=== PATIENT | female | born 1985 | race Caucasian/White ===

== ENCOUNTER 2023-11-25 10:12 | Outpatient (CLI) | payer OTHER, SELFPAY | END 2023-11-25 10:13 | disposition home or self-care (01) | LOC: NFLDREF 11-27 09:33 | PROVIDERS: Visit Provider Advanced Practice Midwife | DX: Z34.93 Encounter for supervision of normal pregnancy, unspecified, third trimester (principal); Z3A.28 28 weeks gestation of pregnancy | CPT/HCPCS: 86592 ==

== ENCOUNTER 2024-01-22 09:52 | Outpatient (CLI) | payer OTHER, SELFPAY | END 2024-01-22 09:53 | disposition home or self-care (01) | LOC: NFLDREF 01-24 03:28 | PROVIDERS: Visit Provider Midwife | DX: Z34.93 Encounter for supervision of normal pregnancy, unspecified, third trimester (principal); O99.013 Anemia complicating pregnancy, third trimester; O09.523 Supervision of elderly multigravida, third trimester; Z3A.36 36 weeks gestation of pregnancy | CPT/HCPCS: 87081; 87653 ==

== ENCOUNTER 2024-02-16 18:14 | Inpatient (IN) | payer OTHER, SELFPAY ==
[2024-02-16 18:01] VITALS: BP 111/59; PULSE 85
[2024-02-16 18:23] LABS: Amnisure Rom* POSITIVE
--- NOTE | 2024-02-16 19:24 | W.PM.LDBA ---
Subjective History of Present Illness Date Seen: 02/16/24 Narrative: Elizabeth is being admitted to Labor and Delivery for SROM and labor contractions that began about 30 minutes after. She is a 38 year old at 40.2 weeks gestation. Her full history and physical was dictated by Lm Zhao CNM on 01/29/24. Please see this for details. Elizabeth had SROM at home around [] with clear fluid and started shira about 30 minutes after that. They have increased in frequency and intensity since that time. On arrival to the unit she is using movement and breathing to cope with contractions. SVE at that time was 3-4/75%/-3 with moderate amount of clear fluid. She continues to leak. She desires a waterbirth. Specific Issues/Plans : Mina Aguilarkatyaevelyn H&P completed 01/29/2024 by Osei NUNEZ # AMA -level II ordered with MPP: 09/24/2023: No aneuploidy markers, no structural anomalies, SDP 3.79, EFW 44%, normal placenta posterior. No additional follow-up needed. Genetic screening: declines # BMI 32.9 -Encouraged to start aspirin, may decline #Anemia. Hgb 10.5 at 28 weeks. [facility] records: Labs 07/31/23 Blood type B+ AB screen: negative Hgb 13.4 Plts 198 Rubella immune RPR neg Hep B neg HIV neg GC/Chlamydia Neg Urine culture: WNL Hep C neg Varicella immune Pap 09/22 NIL, HPV neg LMP 05/10/23 Viability u/s: 07/02/23 7.2 weeks, ZAIN 02/16/24. Myoma 1 - intramural, anterior & mid segment of the uterus, 1.1 x 0.9 x 0.9 Myoma 2 - intramural, left anterior mid segment of the uterus, 1 x 0.7 x 0.9 07/31/23. 11.6 weeks, ZAIN 02/13/24. Tiny uterine fibroids noted. ZAIN by LMP, 02/14/24 Tdap: Patient declined Flu: declined COVID: declined OB - Problem Based A/P Additional Plan (1) Pain during labor: Status: Acute (2) SROM (spontaneous rupture of membranes): Status: Acute (3) Anemia affecting : Status: Acute (4) AMA (advanced maternal age) multigravida 35+: Status: Acute Plan ASSESSMENT:? at 40.2 weeks gestation? GBS negative? complicated by: AMA, anemia ? SROM followed by spontaneous labor Blood type:?B+ ?? PLAN:? 1. Spontaneous labor after SROM. Expectant management at this time. 2. Desires water . Consent signed. Hep C negative.? 3. Candidate for analgesia of choice. Planning unmedicated .? 4. Anticipate ? 5. Expectant management at this time.? 6. IV not needed at this time. Consider if patient condition changes per unit policy. 7. Intermittent auscultation after reactive tracing per unit policy. Delivery/Labor/Induction Plan Plan: expectant management OB Result Labs Blood Type: B (+) positive Rubella: immune RPR/VDLR: nonreactive GBS Status: negative HBsAG: negative OB Exam Physical Exam Vital signs: Pulse BP 85 111/59 L 02/16/24 18:01 02/16/24 18:01 Narrative: Psychiatric:? Alert and oriented x3? HEENT:? Normocephalic, atraumatic? Neck:? Supple without adenopathy or thyromegaly? Lungs:? Clear to auscultation bilaterally? Heart:? Regular rate and rhythm, no murmur, rub or gallop? Abdomen:? Soft, nontender, and gravid? Extremities:? No edema or erythema? 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
[2024-02-16 19:31] VITALS: TEMP 36.6
[2024-02-16 21:39] VITALS: BP 120/69
[2024-02-17] VITALS (15 sets, daily range): BP systolic 102–132; BP diastolic 65–89; PULSE 92–151; RESP 16–18; TEMP 36.2–36.9; O2SAT 96–100
[2024-02-17] MEDS: LIDOCAINE 1 % PF 30 ML INJECTION (01:25)
[2024-02-17] MEDS: lidocaine HCL 2 % JELLY (TOP) STERILE 6 ML TOPICAL (01:25)
--- NOTE | 2024-02-17 01:59 | W.PM.OBVAGDE ---
OB Procedure Vag Delivery Mother Details Mother Details: The patient is a 38 year-old, 3, Para 0, admitted on 02/16/24 at 40.3 Days gestation. : 3 Para: 1 Weeks Gestation: 40.3 Admission Date: 02/16/24 Additional Details Amniotic Membrane Status: SROM Amniotic Membrane Rupture Date: 02/16/24 Amniotic Membrane Rupture Time: 15:00 Amniotic Membrane Fluid Description: Clear Analgesia/Anesthesia Type: None Waterbirth: Yes Pitcoin: No Labor Onset: 16:00 Complete: 22:29 Pushin:55 (pushing spontaneously before SVE) Heart: heart tones during second stage were heard on doppler 120-130 without decreases heard. Delivery Details Delivery Date: 02/17/24 Delivery Time: 00:18 Route of delivery: Gender: Female Viability: Alive; Heart Rate Present Position at Delivery: OA Delivery Details: Patient was admitted for SROM and active labor and progressed normally. SROM noted at 1500 with clear fluid. Patient was confirmed complete by SVE at 2229 but assumed complete with spontaneous pushing at 2155. of a viable female at 0018 in left side lying in the tub. Vertex delivered OA. No nuchal cord or shoulder. Cord was noted to be wrapped around the right leg loosely after delivery. Body delivered easily and without incident. Infant passed to mothers abdomen with a vigorous cry. Cord was clamped and cut at > 5 minutes. APGARS were [ ] at one minute and [ ] at five minutes respectively. Mouth was bulb suctioned. Intact placenta with a 3 vessel cord delivered at 0107. A manual sweep was performed to release one small spot of the placenta that had not released. She was offered Cytotec or Pitocin around 40 minutes after to assist with delivery of the placenta but she declined. Squatting was attempted but did not results in the placenta delivering. She was again offered Pitocin or Cytotec around 50 minutes after delivery which she again declined but she desired and was agreeable to a manual sweep instead. Fundus firm. 2nd degree perineal and left labial laceration were identified and repaired in typical fashion. QBL 700mL in the drape and EBL 200 in the tub for a total of 900mL. Mother and baby stable; mother plans to breastfeed. weight pending.? Additional Details Shoulder Dystocia: No Placenta Delivery Time: 01:07 Placental Delivery Description: Manual Removal Delivery repair: Vicryl Procedure Done: Global Blood Loss: 900 Laceration: Perineal - 2nd Degree (and labial) Episiotomy Description: None Blood Loss Measurement Type: QBL Bakri Used: No Sponge/Need Count Correct: Yes Cord Vessel Description: 3 Vessels and Around Extremity (right leg) Event Summary Status: Mother and were stable after delivery. Disposition: floor
--- NOTE | 2024-02-17 12:34 | PM.EN ---
Chart Event Note Chart Event Note: RN reported that manual removal of placenta was done and asked about prophylaxis antibiotics. Per ENRIQUE Dean note, I don't know if complete manual removal was performed but antibiotics were not ordered. Reviewed this with Dr. Tompkins who agrees that no antibiotics are necessary at this point. Recommended continue monitoring for s/sx of infection. RN notified.
[2024-02-17] MEDS: DOCUSATE SODIUM 100 MG CAPSULE PO (14:03)
[2024-02-18 02:28] VITALS: BP 106/68; PULSE 104; RESP 20; TEMP 36.9; O2SAT 94
--- NOTE | 2024-02-18 07:26 | P.DS_ITS ---
DS: Providers Provider Date Seen: 02/18/24 Date of admission: 02/16/24 18:14 Primary care physician: Not a Local Provider Admitting Clinician: Cher Dean CNM Attending Physician on discharge: Osei NUNEZ APRN Date of Discharge: 02/18/24 DS: Diagnosis Discharge Diagnosis (1) AMA (advanced maternal age) multigravida 35+: Status: Acute (2) Anemia affecting : Status: Acute (3) care and examination of lactating mother: Status: Acute (4) (normal spontaneous vaginal delivery): Status: Acute Exam Narrative: Exam Narrative: GENERAL APPEARANCE:? normal affect, alert, no distress MOOD:? appropriate CHEST:? clear to auscultation HEART:? regular rate and rhythm ABDOMEN:? soft, non-tender the uterine fundus is At Umbilicus, Midline and is appropriate for the stage of recovery. PERINEUM:? RN to visualize as did not want to disturb baby EXTREMITIES:? normal and minimal edema Const: Vital Signs, click to edit/add: Vital Signs - 24 hr 02/17/24 09:20 02/17/24 13:30 02/17/24 17:58 Temperature 97.8 F 97.1 F L 97.6 F Pulse Rate [Pulse Oximeter] 99 92 98 Respiratory Rate 16 16 18 Blood Pressure [Ri ght Arm] 111/89 118/81 112/78 Pulse Oximetry 98 97 96 Oxygen Delivery Me thod Room Air Room Air Room Air 02/17/24 21:02 02/18/24 02:28 Temperature 98.5 F 98.5 F Pulse Rate [Pulse Oximeter] 92 104 H Respiratory Rate 16 20 Blood Pressure [Ri ght Arm] 120/79 106/68 Pulse Oximetry 96 94 Oxygen Delivery Me thod Room Air Room Air OB - DS: Summary Hospital Course Hospital Course: Elizabeth is a 38 y.o. G [id number] who was admitted to L & D for SROM and active labor.? She had a NVD that was complicated by manual extraction of the placenta. The patient feels well.? The pain is well controlled with current medications.? She has no new complaints.? She is breast feeding and reports things are going well. She plans to see prior to discharge. the patient has done well.? Vitals have been stable.? She has remained afebrile.? Has a good appetite, is tolerating a general diet.? She is voiding without difficulty.? She is passing gas and has not had a bowel movement.? She is ambulating and denies any dizziness.? Has small amount of rubra lochia. She is planning condoms for prevention.? ?? Problems: none? ?? plan:? Discharge home with baby.? Follow up in 2 weeks and 6 weeks.? , may see if needed? Hgb 9.4. ? ? Labs WNL or stable with trending? Peripartum Data delivery method: Vaginal Laceration description: Perineal - 2nd Degree [place] Infant Gender: Female Infant Discharge Plan: Home Status at Discharge Overall status at discharge: patient is progressing back to baseline Time Spent with Patient Time attestation: Total time spent providing and/or coordinating discharge services: Time spent: Less than 30 minutes Discharge Plan Discharge Disposition: Home, Self-Care Date of Admission: 02/16/24 18:14 Attending Provider on Discharge: Rosie Zhao Primary Care Provider: Provider,Not a Local Condition: Stable Anticipated Discharge Date/Time: 02/18/24 13:54 Discharge Medications: Continued Classic 28 mg iron- 800 mcg tablet PO QDAY omega-3 fatty acids 500 mg capsule 500 mg PO QDAY Saccharomyces boulardii [Daily Probiotic (S. boulardii)] 250 mg capsule 250 mg PO BID magnesium 250 mg tablet 250 mg PO QDAY Discharge Orders: Discharge Order (Routine); Ordered 02/18/24 Ordered By: Rosie Zhao Patient Education: OB Care, OB Vaginal/Breast Feeding Additional Instructions: Discharge instructions were reviewed with the patient including signs and symptoms of infection and home going medications Nothing vaginally for 6 weeks: no tampons or intercourse Do not drive while taking narcotic pain medication(s) Off Work or School for 6 weeks Symptoms to report to doctor: * Bleeding that saturates more than one pad per hour * Passing clots larger than the size of a golf ball * Pain not relieved by prescribed medication * Fever above 100.4 degrees Fahrenheit * A foul vaginal odor * Difficulty in emotions, mood, and functions * Thoughts of hurting yourself and/or * Painful, reddened area in your breast * Any drainage, redness, or tenderness in your IV/epidural site * Severe headache that doesn't improve after taking medications * Changes in vision, including temporary loss of vision, blurred vision, and/or light sensitivity * Upper abdominal pain (usually under ribs on the right side) * Decrease in urination or painful, frequent urinating * Chest pain * Shortness of breath * Tenderness or pain with redness and/swelling in the calf(s) of your leg 2-week visit: discuss infant feeding concerns, review control options and screen for anxiety/depression. 6-week visit for an annual exam. consultation services are available to all mothers and babies for the first year after delivery.? To make an appointment, please call [phone]. Activity Level: Activity as Tolerated Discharge Diet: Regular Follow Up Appointments: [facility] [Provider Group] Forms: [facility] Info Instructions
[2024-02-18 09:46] LABS: Hemoglobin* 9.4 gm/dL (12.0-16.0)
[2024-02-19 23:56] LABS: Rapid Plasma Reagin (RPR) Non Reactive (Non Reactive)
== END 2024-02-18 15:10 | disposition home or self-care (01) | DRG 807 ==
LOC: OB OUT 18:14 → OB 18:14
PROVIDERS: Admitting Provider Advanced Practice Midwife; Visit Provider Advanced Practice Midwife
DX: O99.02 Anemia complicating childbirth (principal); Z37.0 Single live birth; O70.1 Second degree perineal laceration during delivery; O73.0 Retained placenta without hemorrhage; D64.9 Anemia, unspecified; Z3A.40 40 weeks gestation of pregnancy
CPT/HCPCS: 36415; 84112; 85018; 86592; 88307; A9270; J2003

== ENCOUNTER 2024-02-22 14:37 | Outpatient (CLI) | payer OTHER, SELFPAY ==
--- NOTE | 2024-02-22 16:21 | W.PM.LAC.MC ---
Consult Note - Mom Date of Visit Date of visit: 02/22/24 Reason for consultation: Assistance Needed and Infant Weight Concern Visit Code: Visit Patient's Information Phone number: [phone] : 3 Para: 1 Allergies No Known Drug Allergies Allergy (Verified 02/22/24 11:35) Mother's Medical History: Medical History (Updated 02/20/24 @ 00:01 by Background Daemon) Psoriasis ?L40.9 - Psoriasis, unspecified (ICD-10) BMI 32.0-32.9,adult ?Z68.32 - Body mass index [BMI] 32.0-32.9, adult (ICD-10) Anemia affecting ?O99.019 - Anemia complicating , unspecified trimester (ICD-10) Delivery Information Delivery type: Vaginal Gestational Age: 40w 3d Gestational Weight For Age: LGA Weight: 4.185 kg Discharge Weight: 3.972 kg Percentage weight loss: 5 Baby's Information Baby's Age at Visit: 5 days Baby's Provider or Clinic: [facility] for 1[facility] visit; likely transferring to [facility] Jaundice: No Past Experience Past Experience: No Current Frequency of Day Feedings: average every 3 hours due to sleepiness Frequency of Night Feedings: average every 3 hours Both Breasts: Yes Suck: strong Latch: still working on wider, deeper latch Length of Time: 15-20 min ea side Goals: 1 year Pumping Pumping: Yes Quantity Pumped: got 1 oz this morning for the first time Supplementing EBM Supplement: Yes Formula Supplement: Yes Baby Elimination Number of Wet Diapers a Day: 4 yesterday, 3 so far today Number of BM a Day: 2 so far today, last one was finally more yellow than green Breast/Nipple Condition Breast Information: Breasts are symmetrical with rounded lower quadrants, intramammary distance is less than 1.5 inches. No erythema. Nipples are supple, everted prior to feeding. Breast Shape: Round Engorgement: No Maternal Nipple Condition - Left: Common Nipple and Other (slight scabbing) Maternal Nipple Condition - Right: Common Nipple and Other (slight scabbing) Sore Nipples: Yes Interventions for Sore Nipples: Lansinoh/Nipple Cream and Other (silverettes) Baby Assessment Skin: Normal Tongue/frenulum: Normal/elastic and Other (tongue sucker) Palate: Average Lips: Relaxed and Symmetrical Jaw Alignment: Symmetrical Mucosa: [place], moist Onsite Observation Pre-Feed weight: 3.874 kg Post-Feed weight: 3.904 kg Milk Transferred (mL): 30 Position: Cross cradle Attachment/latch-on achieved: Easily Swallow: Audible, consistent Behavior following feed: Alert, content Pre-Nursing Left Nipple: Within Normal Limits Pre-Nursing Right Nipple: Within Normal Limits Post-Nursing Left Nipple: Creased/Beveled (slight, still needs a deeper latch, but less painful for mom) Post-Nursing Right Nipple: Creased/Beveled (still needs a deeper latch, but less painful for mom) Assessments/Interventions Assessments/Interventions: Worked with mom, dad and 5 day old baby on questions re: milk transfer Saw provider 2 days ago, baby at 10% weight loss, were told to supplement 1/2-1 oz ea feeding. Mom was told to pump after feedings, or to pump and bottle to know how much baby is getting. Mom got 1 oz this morning, but otherwise has not been getting much milk output with pumping so feeling discouraged. Justin nursed well here; took several attempts to get baby wide and deep on mom's breast, but eventually able to do so. Nursed 15 min on mom's right breast and transferred 14 ml, then nursed 14 min on mom's left breast and transferred 16 ml for 30ml total. Mom used breast compression when baby got sleepy to increase milk to baby and suckling behavior by . Babe content in father's arms after feeding. Justin had been very fussy at the time of Thursday's appointment; much more content now, even after the feeding here in the office Education provided: Early feeding cues to maximize timing of latching, Asymmetric latch technique for wide/deep latch to increase milk, Transfer for baby and increase comfort for mom (need to wait for a yawn wide mouth before bringing baby to the breast for widest, deepest latch), Supply/demand nature of milk supply, Need for frequent stimulation/milk removal, Alternative feeding methods (SNS, cup, finger feeding, bottling) and Pumping for milk management Handouts Provided: [employer] Cycle pumping and info on hands on pumping Feeding Plan: 1. Breastfeed for 15 min on each breast, listening for active swallowing, breast compression when baby is sleepy to increase milk to baby and suckling by baby 2. Pump both breasts for: 20 minutes after each feeding as much as able to stimulate supply, and to have milk for baby's supplement. Discussed hands on pumping may help with expression of milk. 3. Feed baby 15 ml of pumped milk and/or formula after every feeding if baby is acting hungry 4. Use bottle for feedings based on preference 5. Rest, and repeat every 2-3 hours, watch for early feeding cues 6. Try skin to skin to increase milk production Follow-Up Suggested follow up: Appointment in 1 week Recommend baby be seen by provider for:: Discussed appt with primary provider for general pediatric care; discussed options within the [employer] system as family not sure they are going back to [facility] Call with questions/concerns prior to appt next week. Time Spent Time spent with patient (min): 100 (reviewing EMR and face to face time with patient, , and ) Meds Home Medications and Allergies Home Medications ?Medication ?Instructions ?Recorded ?Confirmed ?Type Saccharomyces boulardii 250 mg 250 mg PO BID 08/18/23 02/22/24 History capsule (Daily Probiotic (S. boulardii)) omega-3 fatty acids 500 mg capsule 500 mg PO QDAY 08/18/23 02/22/24 History vits no.126-ferrous fum tab PO QDAY 08/18/23 02/22/24 History 28 mg iron-folic acid 800 mcg tablet (Classic ) magnesium 250 mg tablet 250 mg PO QDAY 01/22/24 02/22/24 History Allergies Allergy/AdvReac Type Severity Reaction Status Date / Time No Known Drug Allergies Allergy Verified 02/22/24 11:35
== END 2024-02-22 14:38 | disposition home or self-care (01) ==
LOC: OB LAC 14:45
PROVIDERS: Visit Provider Obstetrics & Gynecology
DX: Z39.1 Encounter for care and examination of lactating mother (principal)
CPT/HCPCS: G0463

== ENCOUNTER 2024-04-07 14:31 | Outpatient (CLI) | payer OTHER, SELFPAY ==
--- NOTE | 2024-04-07 16:03 | P.LACF_ITS ---
Follow-Up Note: Mom Date of visit Date of visit: 04/07/24 Reason for consultation: Assistance Needed (latch issues; baby making smacking noises when nursing) and Low Milk Supply (still not producing enough to meet baby's needs) Visit Code: Visit Patient's Information Allergies No Known Drug Allergies Allergy (Verified 03/30/24 09:27) Delivery Information Last Weight: 4.258 kg (03/03) Baby's Information Baby's name: Emili Baby's Age at Visit: 1m 20d Baby's Provider or Clinic: [facility] Current Frequency of Day Feedings: every 3 hours or so, sometimes a 4 hr stretch with naps Frequency of Night Feedings: every 2-3 hours Both Breasts: Yes Suck: strong, making clicking noises now Latch: ok, cold be wider, deeper Length of Time: 15 min ea side most feedings Pumping Pumping: Yes Quantity Pumped: 1/2-1 oz total if feed first; 3 oz if not breastfeed first Supplementing EBM Supplement: Yes Formula Supplement: Yes (takes 1-2 oz after some feedings, especially afternoon/evening feeds) Baby Elimination Number of Wet Diapers a Day: ea feeding Number of BM a Day: 1-2/day Breast/Nipple Assessment Breast Shape: Round Engorgement: No Maternal Nipple Condition - Left: Common Nipple Maternal Nipple Condition - Right: Common Nipple Sore Nipples: No Onsite Observation Pre-feed weight: 5.266 kg Post-Feed weight: 5.31 kg Milk Transferred (mL): 44 (after nursing 15 min ea side; 24ml on right, 20ml on left) Pre-Nursing Left Nipple: Within Normal Limits Pre-Nursing Right Nipple: Within Normal Limits Post-Nursing Left Nipple: Creased/Beveled (slight) Post-Nursing Right Nipple: Creased/Beveled (slight) Assessments/Interventions Assessments/Interventions: Watching mom nurse, she is leaning into baby and baby clamps down on the nipple pretty quickly. Back to basics of a wide, deep latch to get baby on the breast deeper, with more breast tissue in her mouth to increase milk transfer for baby and decreased creased nipple for mom. Mom asking about just pumping and bottling and if that would be better for her milk supply overall; discussed getting baby to breast with a wide, deep latch will likely be better for her milk supply in the long term care social worker than pumping and bottling alone. Even if mom needs to pump for a feeding, best to put baby to the breast for 5-10 min ea side than pumping alone, especially if baby can get a deeper latch. If baby has learned some less than ideal habits, she may need to unlearn them to get back to a deeper latch. Baby not opening mouth very wide so discussed tips/tricks to help with that. Baby able to suck on a gloved finger up to 2nd knuckle so gag reflex not too strong and should allow for mom's breast to be deeper in her mouth. Discussed importance of frequent milk removal most helpful in maintaining milk supply. Education provided: Early feeding cues to maximize timing of latching, Asymmetric latch technique for wide/deep latch to increase milk, Transfer for baby and increase comfort for mom, Supply/demand nature of milk supply, Need for frequent stimulation/milk removal and Pumping for milk management Follow-Up Suggested follow up: Appointment as needed Time Spent Time spent with patient (min): 90 (reviewing EMR and face to face with patient, , and baby) Meds Home Medications and Allergies Home Medications ?Medication ?Instructions ?Recorded ?Confirmed ?Type Saccharomyces boulardii 250 mg 250 mg PO BID 08/18/23 03/30/24 History capsule (Daily Probiotic (S. boulardii)) omega-3 fatty acids 500 mg capsule 500 mg PO QDAY 08/18/23 03/30/24 History vits no.126-ferrous fum tab PO QDAY 08/18/23 03/30/24 History 28 mg iron-folic acid 800 mcg tablet (Classic ) magnesium 250 mg tablet 250 mg PO QDAY 01/22/24 03/30/24 History Allergies Allergy/AdvReac Type Severity Reaction Status Date / Time No Known Drug Allergies Allergy Verified 03/30/24 09:27
== END 2024-04-07 14:32 | disposition home or self-care (01) ==
LOC: OB LAC 14:32
PROVIDERS: Visit Provider Obstetrics & Gynecology
DX: Z39.1 Encounter for care and examination of lactating mother (principal)
CPT/HCPCS: G0463

== ENCOUNTER 2024-05-13 14:42 | Outpatient (CLI) | payer OTHER, SELFPAY ==
--- NOTE | 2024-05-13 16:25 | P.LACF_ITS ---
Follow-Up Note: Mom Date of visit Date of visit: 05/13/24 Reason for consultation: Low Milk Supply (ways to increase supply as baby's needs increase with exclusively pumping) Visit Code: Visit Patient's Information Allergies No Known Drug Allergies Allergy (Verified 05/02/24 10:59) Baby's Information Baby's name: Emili Baby's Age at Visit: 2m 25 days Baby's Provider or Clinic: [facility] Current Frequency of Day Feedings: about every 3 hours Frequency of Night Feedings: 6-7 hr sleep stretch Suck: bottle feeding only, noisy feeder, slurpy Length of Time: 10-15minutes to take 4 oz Pumping Pumping: Yes Quantity Pumped: 3-7 oz/pump Supplementing EBM Supplement: Yes Formula Supplement: Yes (occas needs a 4oz bottle if not enough EBM) Baby Elimination Number of Wet Diapers a Day: ea feeding Number of BM a Day: multiple/day Breast/Nipple Assessment Breast Shape: Round Engorgement: No Onsite Observation Pre-feed weight: 5.478 kg Pre-Nursing Left Nipple: Within Normal Limits Pre-Nursing Right Nipple: Within Normal Limits Assessments/Interventions Assessments/Interventions: exclusively pumping using a Mom Cozy pump; also has a Spectra but gets the same with her Mom Cozy and prefers that pump over the Spectra Pump volumes for the last several days: 05/07 20.9oz 05/08 22 oz 05/09 22 oz Had one day she got 26 oz forgot to bring info for last few days pumps 6x/day; going a 6-7 sleep stretch at night pumps for 20-30 minutes with each pump Has not resumed her menstrual cycle eating well, drinking well drinking a tea, also taking fenugreek Discussed: resuming power hour pump session in the AM Hands on pumping that can be done the Spectra vs Mom Cozy might be helpful 1- 2x/day long sleep stretch at night may be problematic; if she can add in a pump after 4 hrs of sleep she might build her supply back up as well as have the milk from that pump in addition to her current level track 24 hr total to know if it makes a difference discussed supply/demand nature of milk supply as well as different women have different milk volume levels that can be hard to increase over Education provided: Need for frequent stimulation/milk removal, Pumping for milk management and Milk collection, storage Follow-Up Suggested follow up: Appointment as needed Time Spent Time spent with patient (min): 90 (time spent with patient, huband and infant) Meds Home Medications and Allergies Home Medications ?Medication ?Instructions ?Recorded ?Confirmed ?Type Saccharomyces boulardii 250 mg 250 mg PO BID 08/18/23 05/13/24 History capsule (Daily Probiotic (S. boulardii)) omega-3 fatty acids 500 mg capsule 500 mg PO QDAY 08/18/23 05/13/24 History vits no.126-ferrous fum tab PO QDAY 08/18/23 05/13/24 History 28 mg iron-folic acid 800 mcg tablet (Classic ) magnesium 250 mg tablet 250 mg PO QDAY 01/22/24 05/13/24 History Allergies Allergy/AdvReac Type Severity Reaction Status Date / Time No Known Drug Allergies Allergy Verified 05/02/24 10:59
== END 2024-05-13 14:43 | disposition home or self-care (01) ==
PROVIDERS: Visit Provider Obstetrics & Gynecology
DX: Z39.1 Encounter for care and examination of lactating mother (principal)
CPT/HCPCS: G0463

== ENCOUNTER 2024-06-14 13:05 | Outpatient (CLI) | payer OTHER, SELFPAY ==
--- NOTE | 2024-06-14 14:45 | P.LACF_ITS ---
Follow-Up Note: Mom Date of visit Date of visit: 06/14/24 Reason for consultation: Breast/Nipple Issue (nipple pain effecting pumping) and Low Milk Supply Visit Code: Visit Patient's Information Allergies No Known Drug Allergies Allergy (Verified 05/02/24 10:59) Baby's Information Baby's name: Emili Jacobs Baby's Age at Visit: 16+ weeks Baby's Provider or Clinic: [facility] Current Suck: not ; exclusively pump and bottle Pumping Pumping: Yes (pumping 6 times/day, sometimes just 5 due to the pain) Quantity Pumped: was 25 oz/day, in last few weeks down to 15oz/day total Supplementing Formula Supplement: Yes Breast/Nipple Assessment Breast/Nipple Assessment: Breasts are symmetrical with rounded lower quadrants, intramammary distance is less than 1.5 inches. No erythema of breast. Nipples are supple, everted prior to feeding. Nipples measure 18mm bilaterally, Elizabeth using 21mm flange size. Erythema, swelling, flaky area around nipples, approx 30mm in diameter bilaterally; Elizabeth reports very tender to touch Had been pumping at a level 3 with her Mom Cozy M6 pump, down to a level 1 due to the pain. Breast Shape: Round Engorgement: No Sore Nipples: Yes Interventions for Sore Nipples: Lansinoh/Nipple Cream Onsite Observation Pre-Nursing Left Nipple: Redness Pre-Nursing Right Nipple: Redness Assessments/Interventions Assessments/Interventions: Low milk supply: Elizabeth comes to clinic today to discuss decrease milk supply over the last few weeks. She had been pumping an average of 22 oz/day via 6 pump sessions. Over the last 2 weeks, she is now pumping average of 15oz/day in 5-6 pump sessions; she tries to do 6 pumps/day but the nipple pain has increased and she is not able to get 6 in all the time. Mom had tried adding in a pump in the middle of the night to see if this increased her overall supply; only added 1-2 oz in her 24 hour total so removed that again. She had been pumping an average of 3.5 oz/session, up to 7.5-8oz with a power pump in the morning; she is now getting 4-5 oz in the AM and 1.5-2oz the rest of her pumps. Of note, she can only pump on level 1 due to the pain, and looking back this coi ncided with when her volumes started dropping. She has tried a heating pad to her breasts while pumping, a breast massager, making sure she's getting adequate fluids, multiple galactogogues (Liquid Gold, Fenugreek, and a Boobie Mother of all greens supplement) each day. None of them have helped her dramatically. Her menstrual cycle has not returned, but she has felt a bit hormonal this week and she had a skin breakout on her face that is new so she wonders if her cycle is coming. She does not think she is . Her pump does appear to be working well. Returned to work 2 weeks ago; thinks this is going well. Work is not stressful, but they are settling into the new routine. Mom does not think this is part of the issue as she is working from home right now and her pumping routine does not feel disrupted. Discussed role of pumping on lower setting due to nipple pain possibly reason for decreased milk supply due to less emptying of the breast. Thrush treatment Clotrimazole after pumpings up to 8 times/day; apply to infection plus beyond edge of redness to prevent infection from spreading; apply until infection gone PLUS 1 week. Breast shells between feedings to allow air flow vs breast pads that may be trapping moisture and harboring yeast. Can add Hydrocortisone after pumpings up to 8 times/day for 1 week if not feeling calmer in 3-4 days; can potentially make yeast worse so hold off on this if possible. Discussed gentle cleansing of skin once a day Discussed sanitizing pump parts at least once a day until infection cleared, twice a day best Continue with probiotics Ok to continue using nipple cream while pumping if it eases discomfort with the pumping process. Work to increasing strength of vacuum as infection heals; hopefully this will increase output but may take several weeks to see where her end supply settles. Education provided: Sore nipple treatment options (Thrush), Hand expression and Pumping for milk management Follow-Up Suggested follow up: Appointment in 1 week (if needed, phone call f/u if needed) Time Spent Time spent with patient (min): 90 Meds Home Medications and Allergies Home Medications ?Medication ?Instructions ?Recorded ?Confirmed ?Type Saccharomyces boulardii 250 mg 250 mg PO BID 08/18/23 05/13/24 History capsule (Daily Probiotic (S. boulardii)) omega-3 fatty acids 500 mg capsule 500 mg PO QDAY 08/18/23 05/13/24 History vits no.126-ferrous fum tab PO QDAY 08/18/23 05/13/24 History 28 mg iron-folic acid 800 mcg tablet (Classic ) magnesium 250 mg tablet 250 mg PO QDAY 01/22/24 05/13/24 History Allergies Allergy/AdvReac Type Severity Reaction Status Date / Time No Known Drug Allergies Allergy Verified 05/02/24 10:59
== END 2024-06-14 13:06 | disposition home or self-care (01) ==
PROVIDERS: Visit Provider Obstetrics & Gynecology
DX: Z39.1 Encounter for care and examination of lactating mother (principal)
CPT/HCPCS: G0463